=== PATIENT | male | born 1995 | race Native Hawaiian/Other Pacific Islander ===

== ENCOUNTER 2023-03-29 11:57 | Emergency (ER) | payer OTHER ==
[~2023-03-29] VITALS: Ht 160 cm; Wt 56.7 kg
[2023-03-29 12:08] VITALS: TEMP 97.6
[2023-03-29] MEDS ORDERED: SODIUM CHLORIDE 0.9% 1,000 ML IV SCH ×2 (12:12→15:27)
[2023-03-29] MEDS ORDERED: Ondansetron HCl 4 MG INJ INJ ONE (12:12)
[2023-03-29] MEDS ORDERED: SODIUM CHLORIDE 0.9% 1,000 ML IV ONE ×2 (12:12→15:17)
[2023-03-29] MEDS ORDERED: INSULIN 100 UNITS/ML EA INJ ONE ×2 (12:24→14:13)
[2023-03-29] MEDS ORDERED: SODIUM BICARBONATE 50 MEQ/50 ML ABBOJECT INJ ONE (12:30)
[2023-03-29] MEDS ORDERED: SODIUM BICARBONATE 100 ML IV ONE (12:30)
[2023-03-29] MEDS ORDERED: SODIUM CHLORIDE 0.9% 2,000 ML IV ONE (12:31)
[2023-03-29] MEDS ORDERED: INSULIN 100 UNITS/ML EA ONE ×2 (12:38→13:50)
[2023-03-29 12:49] LABS: PLATELET COUNT 405 K/uL (142-355)
[2023-03-29 13:08] LABS: POTASSIUM 6.5 mmol/L (3.6-5.2)
[2023-03-29] MEDS ORDERED: INSULIN IV SCH (13:34)
[2023-03-29] MEDS ORDERED: SOD CHLORIDE 0.9% IV SCH (13:34)
[2023-03-29] MEDS ORDERED: SOD CHLORIDE 0.9% 100 ML IV ONE (13:52)
[2023-03-29 15:33] VITALS: BP 126/64
== END 2023-03-29 15:33 | disposition short-term general hospital (02) ==
LOC: ED 11:57
PROVIDERS: Family Medicine
DX: R11.2 Nausea with vomiting, unspecified (principal); R10.9 Unspecified abdominal pain; E10.10 Type 1 diabetes mellitus with ketoacidosis without coma; Z79.4 Long term (current) use of insulin; E86.0 Dehydration; E87.5 Hyperkalemia; R00.1 Bradycardia, unspecified; R63.0 Anorexia
CPT/HCPCS: 36415; 36600; 80053; 82150; 82805; 82948; 83605; 83690; 83735; 84100; 85007; 85027; 87040; 93005; 96361; 96365; 96375; 96376; 99285; J1815; J2405; J3490